=== PATIENT | male | born 1950 | race Caucasian/White ===

== ENCOUNTER → 2020-06-15 | Outpatient (CLI) | payer BC ==
[~2020-06-15] MED LIST: ASA81BEC PO; ASPIRIN325 PO; LIPITOR40 MG PO; OIL OF OREGAN1500 MG SUBLING; OMEPRAZOLE 20 M20 M1 PO; OMEPRAZOLE40 MG PO; TOPROL XL50 MG PO
== END ==
LOC: ULTRA 11:26
PROVIDERS: ATTEND Surgery Vascular Surgery
DX: Z01.818 Encounter for other preprocedural examination (principal); I25.118 Atherosclerotic heart disease of native coronary artery with other forms of angina pectoris

== ENCOUNTER 2020-06-21 06:04 | Inpatient (IN) | payer BC ==
[2020-06-21] VITALS (7 sets, daily range): BP systolic 91–146; BP diastolic 49–79
[~2020-06-21] VITALS: Ht 185.4 cm; Wt 87.5 kg
[2020-06-21 12:35] LABS: HEMATOCRIT 28.3 % (42.0-52.0); HEMOGLOBIN 9.5 gm/dL (14.0-18.0); MCH 30.1 pg (26.0-34.0); MCHC 33.5 g/dL (28.0-37.0); MCV 89.9 fL (80.0-100.0); RBC 3.15 mil/uL (4.50-6.00); RDW 13.5 % (10.5-14.5); WBC 10.2 thou/uL (4.0-11.0)
[2020-06-21 12:52] LABS: APTT 27.2 Seconds (24.5-32.8); INR 1.5; PROTIME 16.2 Seconds (9.3-11.4)
[2020-06-21 13:28] LABS: POC BE 0 mmol/L (-2.0 to +3.0); POC CA IONIZED 5.3 mg/dL (4.5-5.3); POC GLUCOSE 116 mg/dL (70-99); POC HCO3 24.2 mmol/L (22.0-26.0); POC HEMOGLOBIN 10.9 g/dL (14.0-18.0); POC POTASSIUM 3.8 mmol/L (3.5-5.1); POC SODIUM 143 mmol/L (136-145); POC pCO2 37.6 mmHg (35.0-45.0); POC pH 7.415 (7.360-7.450)
[2020-06-21 13:28] LABS: POC BE 3 mmol/L (-2.0 to +3.0); POC CA IONIZED 5.1 mg/dL (4.5-5.3); POC GLUCOSE 117 mg/dL (70-99); POC HCO3 27.7 mmol/L (22.0-26.0); POC HEMOGLOBIN 12.9 g/dL (14.0-18.0); POC POTASSIUM 4.7 mmol/L (3.5-5.1); POC SODIUM 141 mmol/L (136-145); POC pCO2 43.1 mmHg (35.0-45.0); POC pH 7.416 (7.360-7.450)
[2020-06-21 13:29] LABS: POC BE 1 mmol/L (-2.0 to +3.0); POC CA IONIZED 5.7 mg/dL (4.5-5.3); POC GLUCOSE 135 mg/dL (70-99); POC HCO3 25.5 mmol/L (22.0-26.0); POC HEMOGLOBIN 9.5 g/dL (14.0-18.0); POC POTASSIUM 4.1 mmol/L (3.5-5.1); POC SODIUM 141 mmol/L (136-145); POC pCO2 39.3 mmHg (35.0-45.0); POC pH 7.419 (7.360-7.450)
[2020-06-21 13:29] LABS: POC BE 3 mmol/L (-2.0 to +3.0); POC CA IONIZED 4.6 mg/dL (4.5-5.3); POC GLUCOSE 162 mg/dL (70-99); POC HCO3 27.3 mmol/L (22.0-26.0); POC HEMOGLOBIN 9.9 g/dL (14.0-18.0); POC SODIUM 142 mmol/L (136-145); POC pCO2 41.4 mmHg (35.0-45.0); POC pH 7.427 (7.360-7.450)
[2020-06-21 13:29] LABS: POC BE 3 mmol/L (-2.0 to +3.0); POC CA IONIZED 4.6 mg/dL (4.5-5.3); POC GLUCOSE 149 mg/dL (70-99); POC HCO3 28.5 mmol/L (22.0-26.0); POC HEMOGLOBIN 8.8 g/dL (14.0-18.0); POC POTASSIUM 4.7 mmol/L (3.5-5.1); POC SODIUM 138 mmol/L (136-145); POC pCO2 48.1 mmHg (35.0-45.0); POC pH 7.381 (7.360-7.450)
[2020-06-21 13:29] LABS: POC BE 5 mmol/L (-2.0 to +3.0); POC CA IONIZED 4.6 mg/dL (4.5-5.3); POC GLUCOSE 133 mg/dL (70-99); POC HEMOGLOBIN 10.2 g/dL (14.0-18.0); POC POTASSIUM 5.1 mmol/L (3.5-5.1); POC SODIUM 140 mmol/L (136-145); POC pCO2 37.2 mmHg (35.0-45.0); POC pH 7.484 (7.360-7.450)
[2020-06-21 13:29] LABS: POC BE 4 mmol/L (-2.0 to +3.0); POC CA IONIZED 4.6 mg/dL (4.5-5.3); POC GLUCOSE 160 mg/dL (70-99); POC HCO3 27.5 mmol/L (22.0-26.0); POC HEMOGLOBIN 10.2 g/dL (14.0-18.0); POC POTASSIUM 5.2 mmol/L (3.5-5.1); POC SODIUM 140 mmol/L (136-145); POC pCO2 38.2 mmHg (35.0-45.0); POC pH 7.465 (7.360-7.450)
[2020-06-21 13:30] LABS: POC BE 5 mmol/L (-2.0 to +3.0); POC CA IONIZED 4.3 mg/dL (4.5-5.3); POC GLUCOSE 126 mg/dL (70-99); POC HCO3 28.3 mmol/L (22.0-26.0); POC HEMOGLOBIN 10.2 g/dL (14.0-18.0); POC POTASSIUM 5.1 mmol/L (3.5-5.1); POC SODIUM 139 mmol/L (136-145); POC pCO2 36.1 mmHg (35.0-45.0); POC pH 7.502 (7.360-7.450)
[2020-06-21 13:30] LABS: POC BE 4 mmol/L (-2.0 to +3.0); POC CA IONIZED 4.9 mg/dL (4.5-5.3); POC GLUCOSE 131 mg/dL (70-99); POC HCO3 28.1 mmol/L (22.0-26.0); POC HEMOGLOBIN 12.6 g/dL (14.0-18.0); POC POTASSIUM 4.8 mmol/L (3.5-5.1); POC SODIUM 140 mmol/L (136-145); POC pCO2 44.1 mmHg (35.0-45.0); POC pH 7.413 (7.360-7.450)
[2020-06-21 14:34] LABS: HEMATOCRIT 33.8 % (42.0-52.0); HEMOGLOBIN 11.4 gm/dL (14.0-18.0); MCH 29.9 pg (26.0-34.0); MCHC 33.6 g/dL (28.0-37.0); RBC 3.8 mil/uL (4.50-6.00); RDW 13.6 % (10.5-14.5); WBC 14.6 thou/uL (4.0-11.0)
[2020-06-21 14:44] LABS: BE(vivo) -2.2 mmol/L (-2 to +3); HCO3 22.4 mmol/L (22.0-26.0); PCO2 37.7 mmHg (35.0-45.0); PO2 108.5 mmHg (80.0-100.0); pH 7.391 (7.360-7.450); sO2 97.9 % (92.0-98.0)
[2020-06-21 14:50] LABS: CREATININE 1.1 mg/dL (0.7-1.3); MAGNESIUM 2.3 mg/dL (1.8-2.4); POTASSIUM 4.2 mmol/L (3.5-5.1)
[2020-06-21 14:51] LABS: INR 1.2
--- NOTE | 2020-06-21 15:58 | NUR ---
1400-RECEIVED PT INTO 248 VIA BED FROM O.R. W OH TEAM IN ATTENDANCE. IN IMMED p. ARRIVED ON PROPOFOL & CARDENE.=-=-VW
[2020-06-21 18:31] LABS: CREATININE 1.2 mg/dL (0.7-1.3)
[2020-06-21 19:38] LABS: BE(vivo) -3.2 mmol/L (-2 to +3); HCO3 22.5 mmol/L (22.0-26.0); PCO2 43.2 mmHg (35.0-45.0); PO2 100.4 mmHg (80.0-100.0); pH 7.335 (7.360-7.450); sO2 97.2 % (92.0-98.0)
[2020-06-21 20:08] LABS: BE(vivo) -4.3 mmol/L (-2 to +3); HCO3 21.3 mmol/L (22.0-26.0); PCO2 41.1 mmHg (35.0-45.0); PO2 90.6 mmHg (80.0-100.0); pH 7.333 (7.360-7.450); sO2 96.4 % (92.0-98.0)
[2020-06-22] VITALS (41 sets, daily range): BP systolic 101–144; BP diastolic 45–83
[2020-06-22 05:16] LABS: BE(vivo) -4.5 mmol/L (-2 to +3); HCO3 21.8 mmol/L (22.0-26.0); PCO2 44.9 mmHg (35.0-45.0); PO2 66.6 mmHg (80.0-100.0); sO2 91.3 % (92.0-98.0)
[2020-06-22 05:17] LABS: pH 7.304 (7.360-7.450)
[2020-06-22 06:14] LABS: HEMATOCRIT 32.6 % (42.0-52.0); HEMOGLOBIN 10.7 gm/dL (14.0-18.0); MCH 29.9 pg (26.0-34.0); MCHC 32.9 g/dL (28.0-37.0); RBC 3.58 mil/uL (4.50-6.00); RDW 13.9 % (10.5-14.5); WBC 13.7 thou/uL (4.0-11.0)
[2020-06-22 06:29] LABS: CALCIUM 8.6 mg/dL (8.5-10.1); CREATININE 1.5 mg/dL (0.7-1.3); MAGNESIUM 2.3 mg/dL (1.8-2.4); POTASSIUM 3.5 mmol/L (3.5-5.1)
--- NOTE | 2020-06-22 06:39 | NUR ---
PT PROGRESSING TOWARD GOALS EXTUBATED AT 2015. CONT TO ENC C/DB. CONT TO C/O OF SURGICAL PAIN DESPITE FENTANYL SHORT RELIEF TIME. MONITOR SHOWS SR WITH HR 80'S. AMINO GTT INFUSING ORDERED POST OP. CARDENE GTT INFUSING TO KEEP SBP<160-BP LABILE. CI REMAINS >2.0 UO MINIMALLY ADEQUATE. CONT PLAN OF CARE.
--- NOTE | 2020-06-22 07:15 | EKG ---
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
--- NOTE | 2020-06-22 07:44 | EKG ---
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: REINIER : 1950 Requested By: Jan Underwood Order Number: [id number] MD: Pablo Allan Measurements Intervals [place] Rate: 83 P: 22 [place]: 130 QRS: -20 QRSD: 98 T: 60 QT: 338 QTc: 398 Interpretive Statements Sinus rhythm Abnormal R-wave progression, early transition Inferior infarct, old ST elevation, consider pericarditis Compared to ECG 06/21/2020 14:29:06 ST (T wave) deviation now present Electronically Signed On 06-22-2020 7:44:04 ORTHOTICS PROSTHETICS TECHNICIAN by Pablo Allan [email or web address] <ELECTRONICALLY SIGNED> By: Pablo Allan MD, [facility] 06/22/20 0744 8 8 Pablo Allan MD, [facility] /EPI
--- NOTE | 2020-06-22 08:14 | NUR ---
Received consult for diet instruction. S/P CABG x 6. Diet newly advanced. Will await transfer out of ICU and instruct on diet at more appropriate time.
--- NOTE | 2020-06-22 10:16 | NUR ---
RECEIVED OT EVAL AND TREAT ORDERS. PER CHART REVIEW, PT. STILL HAS SWAN LINE IN OF 729. NOT APPROPRIATE FOR THERAPY WITH SWAN LINE IN. WILL RE-CHECK ON PT. IN PM.
--- NOTE | 2020-06-22 10:18 | NUR ---
chart review. report from bedside nurse. he was up in bed, face shield for o2 rt desat, holding on to his heart pillow. cm cont to wear face mask and shield during visit. intro to cm and dcp. unable to visit rt soa and co of pain. will cont following as needed for dc needs. 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
--- NOTE | 2020-06-22 11:21 | NUR ---
CALLED JAZZY PEREZ. PT PAIN NOT UNDER CONTROL. PT WAS GIVEN IV TYLENOL. PT MOANING AND TACHYPNEIC DUE TO STERNUM INCISION PAIN. HYDROCODONE ORDER IN THE EMAR BUT ORDER STARTS FROM 06/23. RECEIVED AN ORDER FROM TO OVERRIDE THE MEDICATION TO GIVE IT NOW.
[2020-06-23] VITALS (32 sets, daily range): BP systolic 107–140; BP diastolic 48–104
[2020-06-23 05:29] LABS: HEMATOCRIT 29.9 % (42.0-52.0); MCH 30.2 pg (26.0-34.0); MCHC 33.4 g/dL (28.0-37.0); MCV 90.6 fL (80.0-100.0); RBC 3.3 mil/uL (4.50-6.00); RDW 14.3 % (10.5-14.5); WBC 17.1 thou/uL (4.0-11.0)
[2020-06-23 05:38] LABS: CREATININE 1.4 mg/dL (0.7-1.3); POTASSIUM 4.4 mmol/L (3.5-5.1)
--- NOTE | 2020-06-23 08:57 | NUR ---
ASSUMMED CARE OF THIS PATIENT FROM AUREA KIRBY AT 0700 TODAY. PATIENT IS NAUSEATED AND IN PAIN. PEPCID GIVEN AND PAIN MEDS GIVEN PRESCRIBED. PATIENT DOZING AT INTERVALS. PAIN LEVEL DOWN TO A 3/10 BUT REMAINS NAUSEATED. WILL CONTINUE TO MONITOR.
--- NOTE | 2020-06-23 09:20 | HC ---
[facility] [place] [address] CONSULTATION Name: HODA HAMEED Room #: 248-P ADM IN M.R.#: [id number] Admission: 06/21/20 Attend Phys: Amor Thornton MD Discharge: Date of : 52 Report #: [id number] THIS REPORT FOR: cc: Meera Corea MD, K. Gay MD Blick, David R. MD [facility] ~ DATE OF SERVICE: 06/22/2020 CARDIOLOGY CONSULTATION HISTORY OF PRESENT ILLNESS: The patient is a 70-year-old white male who I was asked to see in the ICU today after he had coronary artery bypass surgery. The patient states that several years ago he was short of breath. He apparently saw a gate shear operator in [place] and had a stress test and echocardiogram. No cause of shortness of breath was decided. Recently, he had an episode of chest pressure, went into his left arm and it resolved after several hours. He saw his primary care physician. He does complain of exertional dyspnea but no palpitations, syncope, or peripheral edema. He underwent an echocardiogram that showed normal left ventricular function. He underwent a nuclear stress test at [facility] and he had noted to have an abnormal ECG, although he denied any chest pressure and there was no ischemia noted on images. He apparently had coronary CTA performed that showed several areas of blockage consistent with diffuse coronary artery disease. He was referred to Dr. Bassem Courtney in Cardiology Clinic. He was started on metoprolol and aspirin. Because of his coronary artery disease noted on coronary CTA and complain of chest pain, Dr. Courtney recommended cardiac catheterization as performed at [facility] as an outpatient by Dr. Orlando in early May. This showed an ejection fraction of 60-65%. He had diffuse multivessel coronary artery disease with 80% narrowing of the mid LAD, 90% narrowing of the proximal circumflex, 90% narrowing of the mid right coronary artery. Dr. Orlando recommended coronary artery bypass surgery. The patient was referred to Dr. Amor Thornton and electively admitted yesterday and underwent 6-vessel bypass surgery including [place] graft to the LAD and vein graft to the marginal branch, posterolateral branch of the distal right coronary artery and the diagonal artery. He tolerated the surgery well. He was extubated last night. I was asked to see him in the Cardiology ICU today. At this time, he did note some chest soreness, but denies any shortness of breath, lightheadedness or nausea. PAST MEDICAL HISTORY: Otherwise, he has had knee arthroscopy, hernia repair. He has no history of hypertension, hyperlipidemia. MEDICATIONS: He previously was on no medications, but he now takes aspirin, metoprolol, and omeprazole. [address] [address] CONSULTATION Name: HODA HAMEED Room #: 248-P [facility] IN M.R.#: [id number] Admission: 06/21/20 Attend Phys: Amor Thornton MD Discharge: Date of : 52 Report #: [id number] ALLERGIES: HE HAS AN ALLERGY TO PENICILLIN. FAMILY HISTORY: His father had bypass surgery. SOCIAL HISTORY: He is . He and his live in [place], [place]. 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 He quit smoking years ago. No alcohol abuse. REVIEW OF SYSTEMS: No history of stroke, asthma, liver disease, bleeding, kidney disease, cancer, chronic skin condition. Does wear glasses. PHYSICAL EXAMINATION: GENERAL: Revealed a middle-aged male, lying in bed, appeared in no acute distress. VITAL SIGNS: Blood pressure is 150/80, pulse is 80, he is afebrile. HEENT: He was anicteric. Conjunctivae pink. Mucous membranes moist. NECK: Veins do not appear distended. CHEST: Clear to auscultation. CARDIOVASCULAR: Regular rate and rhythm. There is no rub noted. ABDOMEN: Soft. EXTREMITIES: Had no edema. Dorsalis pedis pulse 2+. SKIN: Cool and dry. NEUROLOGIC: Nonfocal. RADIOLOGICAL DATA: His ECG shows a sinus rhythm, small inferior Q-waves, nonspecific ST and T-wave changes were noted. His chest x-ray, he had some atelectasis, otherwise unremarkable. LABORATORY WORK: Sodium is 138, BUN 24, and creatinine 1.5. His liver function studies were normal. White blood cell count is 13.7 and hematocrit 32.6. IMPRESSION AND RECOMMENDATIONS: 1. Coronary artery disease, status post bypass surgery. I would continue aspirin a day. I would recommend amiodarone for atrial fibrillation prophylaxis. 2. Hypertension. The patient is on a beta graham. 3. Hyperlipidemia. The patient had carotid Doppler studies performed that showed less than 49% bilateral. I would recommend a statin drug. <ELECTRONICALLY SIGNED> By: Braulio Henriquez MD, FACC 06/23/20 0920 1632 1843 Braulio Henriquez MD, FAC /nt
--- NOTE | 2020-06-23 16:29 | NUR ---
PATIENT IS PROGESSING TOWARDS OUTCOME GOALS PAIN IS CONTROLED WITH THE CURRENT PAIN REGIMENT. O2 WEANED TO 3.5 L/NC. UP IN THE CHAIR. STATES THAT NAUSEA IS LESS. VOIDING POST JAMES REMOVAL. PO FLUIDS ENCOURAGED. WILL CONTINUE TO MONITOR.
[2020-06-24] VITALS (8 sets, daily range): BP systolic 99–150; BP diastolic 47–75
[2020-06-24 05:29] LABS: CALCIUM 8.9 mg/dL (8.5-10.1); CREATININE 1.2 mg/dL (0.7-1.3); POTASSIUM 4.9 mmol/L (3.5-5.1)
--- NOTE | 2020-06-24 06:27 | NUR ---
Patient slept on/off through the night. Heart rate and rhythm stable. Blood pressures stable. Adequate oxygenation on current O2. Voiding adequate amount per urinal. C/O nausea with meds. Zofran given x2 along with oral pain meds. Partial relief. Having a lot of discomfort on the right side, where he has injured ribs. Was up to the commode x1 with standby assist. AM labs drawn by lab, results noted. No family called this shift. See documentation on interventions for assessment details. Pt is progressing towards goals.
--- NOTE | 2020-06-24 07:53 | NUR ---
ASSUMMED CARE OF THIS PATIENT FROM THE NIGHT NURSE VINCENZO KIRBY. DR HAMPTON IN TO SEE PATIENT. REVIEWED POC INCLUDING PAIN REGIMENT WITH PATIENT. VERBALIZED UNDERSTANDING.
--- NOTE | 2020-06-24 10:40 | NUR ---
rounds this am and he already been moved to ccu.
--- NOTE | 2020-06-24 16:39 | NUR ---
Respiratory Supervisor visited with the pt and spouse at bedside for dc planning needs. Pt is progresssing well postop cabg with hopes of going home on Saturday. His notes she is there with him all the time and their son is an nurse practioner and available as needed. They do not feel he will need HH services and plan for him to go to cardiac rehab at [facility] [place]. He is weaning off o2 and has been 90 or higher on room air. Alonzo or Porfirio can be contact over the weekend if home o2 is indicated per exercise ox.
[2020-06-25 03:29] LABS: HEMATOCRIT 28.5 % (42.0-52.0); HEMOGLOBIN 9.5 gm/dL (14.0-18.0); MCH 30.1 pg (26.0-34.0); MCHC 33.3 g/dL (28.0-37.0); MCV 90.4 fL (80.0-100.0); RBC 3.15 mil/uL (4.50-6.00); WBC 9.9 thou/uL (4.0-11.0)
[2020-06-25 03:58] LABS: CALCIUM 9.2 mg/dL (8.5-10.1); CREATININE 1.1 mg/dL (0.7-1.3); POTASSIUM 5.1 mmol/L (3.5-5.1)
--- NOTE | 2020-06-25 04:03 | NUR ---
SLEPT MOST OF SHIFT. UP TO BATHROOM WITH STANDBY ASSISTANCE. USES [facility] PRECAUTIONS. WORKING ON GOALS AND PLAN OF CARE FOR NOC. PROGRESSING SLOWLY TOWARDS DISCHARGE GOALS. REMAINS WITH NAUSEA BUT STATES IT IS BETTER. CONTINUE TO ASSJAMES FISH.
[2020-06-25 04:45] VITALS: BP 128/76
[2020-06-25 07:50] VITALS: BP 148/69
[2020-06-25 11:17] VITALS: BP 118/58
[2020-06-25 15:19] VITALS: BP 143/65
--- NOTE | 2020-06-25 15:34 | NUR ---
PT HAD A SHOWER THIS AM. ALERT AND ORIENTED. VSS. PRN PAIN MED GIVEN WITH PARTIAL RELIEF. AMBULATED X2 THIS SHIFT. MARY DRESSING CHANGED. UP IN THE CHAIR. SR ON TELE. SOB NOTED WITH ACTIVITY. PROGRESSING WELL TOWARDS DISCHARGE GOAL.
[2020-06-25 19:25] VITALS: BP 150/71
--- NOTE | 2020-06-26 02:30 | NUR ---
SLEEPING WITHOUT PRESENT COMPLAINTS. O2 AT 1L/NC. VSS. DENIES COMPLAINTS OF CHEST PAIN OR SHORTNESS OF AIR. TOLERATES STANDBY ASSIST UP TO BATHROOM NEEDED. PAIN MEDICATION NEEDED. STATES NAUSEA IS BETTER. WORKING ON GOALS AND PLAN OF CARE FOR NOC. PROGRESSING TOWARDS DISCHARGE GOALS SLOWLY. CONTINUE TO ASSES.
[2020-06-26 04:45] VITALS: BP 141/61
[2020-06-26 07:49] VITALS: BP 153/62
--- NOTE | 2020-06-26 08:24 | O ---
[facility] [place] [address] OPERATIVE REPORT Name: HODA HAMEED Room #: 217-P [facility] IN M.R.#: [id number] Admission: 06/21/20 Attend Phys: Amor Thornton MD Discharge: Date of : 52 Report #: [id number] THIS REPORT FOR: cc: Meera Corea MD, K. Gay MD Forman,Amor Figueroa MD ~ DATE OF SERVICE: 06/21/2020 PREOPERATIVE DIAGNOSIS: Coronary artery disease. POSTOPERATIVE DIAGNOSIS: Coronary artery disease. OPERATION: Coronary artery bypass x 6 including left internal mammary artery to left anterior descending artery, saphenous vein to diagonal and first marginal, saphenous vein to right coronary artery, posterolateral branch (distal circumflex branch), and distal marginal and endoscopic harvest, left greater saphenous vein. SURGEON: Dr. Amor Thornton OFFICE SERVICES CLERK: JAZZY Garnica ANESTHESIA: General. INDICATIONS: The patient is a 70-year-old with coronary artery disease. The patient is treated by Dr. Amor Orlando. Catheterization demonstrated high-grade LAD stenosis as well as a proximal circumflex lesion and there was also intrinsic lesion and a distal branch of the circumflex that I described as a posterolateral. The right coronary is small on the catheterization with midportion tight lesion. Left ventricular function is satisfactory. FINDINGS AND TECHNIQUE: After general anesthesia was established, saphenous vein was harvested using an endoscopic approach and prepared for use as a conduit. Exposure was obtained through median sternotomy. Left internal mammary artery was harvested from chest wall. Pericardial well was made. Cannulation sutures were placed. Heparin was given. Aorta was cannulated. Right atrium was cannulated. Cardioplegia needle was positioned in the aortic root. Retrograde cardioplegic catheter was placed in coronary sinus. Cardiopulmonary bypass was established. The aorta was cross clamped. Antegrade and retrograde cardioplegia were given. Ice was poured in the pericardial well. The heart was stopped. During electromechanical arrest, the distal anastomoses were performed and [facility] [address] [place] [address] OPERATIVE REPORT Name: HODA HAMEED Room #: 217-P [facility] IN M.R.#: [id number] Admission: 06/21/20 Attend Phys: Amor Thonrton MD Discharge: Date of : 52 Report #: [id number] end-to-side anastomosis was made between vein and the large distal marginal artery. This was a 1.5 mm vessel. Cold cardioplegia was given. The same segment of vein was sewn in end-to-side fashion to the posterolateral branch, which was the diseased and most distal branch of the circumflex system. This was a 1.3 mm vessel. Cold cardioplegia was given. The same segment of vein was sewn in end-to-side fashion to the right coronary artery at the crux before it terminated as a small PDA. This was also a 1.3 mm vessel. Cold cardioplegia was given. A separate segment of vein was sewn in end-to-side fashion to the first marginal artery. This was a 1.5 mm vessel. Cold cardioplegia was given. The same segment of vein was sewn in end-to-side fashion to the diagonal artery. This was a 1.6 mm vessel. Cold cardioplegia was given. Left internal mammary artery was sewn in end-to-side fashion to the left anterior descending artery. Patency of this vessel was checked with the temperature technique and the Doppler. The LAD was a 1.6 mm vessel. Cold cardioplegia was given. Two proximal anastomoses were performed. When these were complete, warm retrograde cardioplegia was given followed by warm continuous blood to the coronary sinus. When this infusion was complete, the crossclamp was removed, de-airing maneuvers were performed. The anastomoses were inspected and found to be satisfactory. As the patient warmed, nice cardiac activity resumed, chest tubes and pacing wires were placed, a marker was placed around the proximal anastomoses. When the patient was warm, he was weaned from cardiopulmonary bypass. Venous cannula was removed. Protamine was given, the aortic cannula was removed. Flows were measured in the bypass grafts. When hemostasis was satisfactory, chest was irrigated with antibiotic solution and closed in the usual fashion. The patient was taken to the Intensive Care Unit in good condition having tolerated the procedure well. All counts reported as correct. <ELECTRONICALLY SIGNED> By: Amor Thornton MD 06/26/20823 33 02 Amor Thornton MD /nt
[2020-06-26] MEDS ORDERED: PACERONE 200 M200 M1 PO (08:28)
[2020-06-26 10:22] VITALS: BP 153/62
--- NOTE | 2020-06-26 11:09 | NUR ---
ASSESSMENT CHARTED. PT ALERT AND ORIENTED. VSS. PRN PAIN MED GIVEN WITH PARTIAL RELIEF. MARY DRESSING INTACT. STERNUM PRECAUTION ENFORCED. SEEN BY DR. HAMPTON. ORDERS GIVEN TO DISCHARGE PT TO HOME. DISCHARGE INSTRUCTIONS GIVEN TO PT. PT VERBERLISED UNDERSTANDING.
--- NOTE | 2020-06-27 07:36 | EKG ---
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 : 1950 Requested By: Jan Underwood Order Number: [id number] MD: Keith Young Measurements Intervals [place] Rate: 79 P: 52 [place]: 146 QRS: -9 QRSD: 82 T: 25 QT: 354 QTc: 406 Interpretive Statements Sinus rhythm Abnormal R-wave progression, early transition Compared to ECG 06/22/2020 07:19:02 Myocardial infarct finding no longer present ST (T wave) deviation no longer present Electronically Signed On 06-27-2020 7:36:31 REGIONAL MERCHANDISING MANAGER by Keith Young [email or web address] <ELECTRONICALLY SIGNED> By: Keith Young MD, [facility] 06/27/20735 5 5 Keith Young MD, [facility] /EPI
== END 2020-06-26 12:10 | disposition home or self-care (01) | DRG 235 ==
LOC: TBA 06:04 → ICU 06:04 → PRE 10:29 → ICU 15:38 → 2N 06-24 09:10
PROVIDERS: Physician Assistant; ADMIT Surgery Vascular Surgery; ATTEND Surgery Vascular Surgery
DX: I25.10 Atherosclerotic heart disease of native coronary artery without angina pectoris (principal); N17.0 Acute kidney failure with tubular necrosis; I10 Essential (primary) hypertension; E78.5 Hyperlipidemia, unspecified; D64.9 Anemia, unspecified; E78.00 Pure hypercholesterolemia, unspecified; Z88.0 Allergy status to penicillin
CPT/HCPCS: 10078; 10081; 47000; 47001; 47002; 47297; 50010; 50249; 50409; 50456; 50498; 50668; 51301; 52131; 52259; 52287; 52314; 53327; 53358; 54118; 56455; 56524; 56525; 56526; 56527; 56528; 56531; 56534; 56668; 56719; 56760; 56898; 57093; 57116; 57167; 62110; 62950; 65003; 65047; 65090; 65120; 65135